=== PATIENT | female | born 1975 | race American Indian/Alaskan Native ===

== ENCOUNTER 2016-10-21 00:34 | Emergency (ER) | payer OTHER ==
--- NOTE | 2016-10-21 02:47 | XRay Report ---
FINAL REPORT PROCEDURE: XR KNEE 3V LT TECHNIQUE: LEFT knee radiographs, AP, lateral and oblique views. CPT 92522 HISTORY: Left knee pain and swollen COMPARISON: No prior studies are available for comparison. FINDINGS: Fracture (s) and/or Dislocation(s): None . Alignment: Normal . Joint space(s): Normal . Soft tissues: Normal . Bone mineralization: Normal . Foreign bodies: None . IMPRESSION: Normal Examination.
[2016-10-21] MEDS ORDERED: FLEXERIL PO ONE (02:54)
[2016-10-21] MEDS ORDERED: TORADOL IM ONE (02:54)
--- NOTE | 2016-10-21 03:09 | Emergency Department Report ---
HPI - General Chief Complaint: Extremity Injury, Lower Time Seen by Provider: 10/21/16 02:29 - HPI HPI: Patient is a 41-year-old female presents to ED complaining of left knee pain times this morning. Patient states she felt her knee pop out of place . Today. Patient states she wasn't doing anything when this incident happened. Patient significant other stated that patient just drove a [address] from [place]. She denies any trauma, fall, or any injury to the knee, calf pain. She denies a fever/ Chills/nausea/vomiting ED Past Medical Hx - Past Medical History Previous Medical History?: Yes Hx Headaches / Migraines: Yes Additional medical history: Polycystic ovarian cyst - Surgical History Additional Surgical History: - Social History Smoking Status: Never Smoker - Medications Home Medications: Home Medications Medication Instructions Recorded Confirmed Last Taken Type Sulfamethoxazole/Trimethoprim 1 each PO BID #6 tablet 01/31/13 Unknown Rx [Bactrim DS] Cyclobenzaprine [Flexeril 10 MG 10 mg PO QHS #20 tablet 10/21/16 Unknown Rx TAB] Naproxen [Naprosyn] 500 mg PO BID #30 tablet 10/21/16 Unknown Rx ED Review of Systems ROS: Stated complaint: LT KNEE PAIN W/SWELLING Other details as noted in HPI Constitutional: denies: chills, fever Eyes: denies: eye pain, eye discharge, vision change ENT: denies: ear pain, throat pain Respiratory: denies: cough, shortness of breath, wheezing Cardiovascular: denies: chest pain, palpitations Endocrine: no symptoms reported Gastrointestinal: denies: abdominal pain, nausea, diarrhea Genitourinary: denies: urgency, dysuria, discharge Musculoskeletal: denies: back pain, joint swelling, arthralgia Skin: denies: rash, lesions Neurological: denies: headache, weakness, paresthesias Psychiatric: denies: anxiety, depression Hematological/Lymphatic: denies: easy bleeding, easy bruising Physical Exam - Physical Exam Vital Signs: Vital Signs 10/21/16 01:15 Temperature 97.7 F Pulse Rate 66 Respiratory 20 Rate Blood Pressure 175/96 O2 Sat by Pulse 98 Oximetry Physical Exam: GENERAL: Alert and oriented x3, no apparent distress, Normal Gait, atraumatic. HEAD: Head is normocephalic and a-traumatic. NECK: Supple. Non edematous, No carotid bruits. No lymphadenopathy or thyromegaly. LUNGS: Symetrical with respiration, No wheezing, no rales or crackles, CTAB. HEART: S1, S2 present, regular rate and rhythm without murmur, no rubs, no gallops. EXTREMITIES/MUSCULOSKELETAL: No cyanosis, clubbing, rash, lesions or edema. Full ROM bilaterally. UE/LE Pulses 2+ bilaterally. LE and UE 5+ strength bilaterally, knee joint is intact. No edema, nonerythematous, no joint effusion of dislocation or fracture noted. Nontender to palpation NEUROLOGIC: The patient is cooperative with no focal neurologic deficits. Cranial nerves II through XII are grossly intact. SKIN: Warm and dry, No lesions, No ulceration or induration present. ED Course Vital Signs 10/21/16 01:15 Temperature 97.7 F Pulse Rate 66 Respiratory 20 Rate Blood Pressure 175/96 O2 Sat by Pulse 98 Oximetry ED Medical Decision Making - Medical Decision Making 41-year-old female presents with left knee arthralgia ED course: Patient received Flexeril and Toradol in the ED Discussed with patient to keep knee wall rested, apply heat 3-4 times daily Discuss a follow-up with primary care physician. Discussed to take medication as prescribed. Medicines are normal patient is in no acute or respiratory distress. Patient is alert and oriented understands instructions given. Knee x-ray completed. X-ray shows no dislocation or fractures, normal alignment , normal joint space, normal soft tissues normal x-ray. Discussed findings with patient Critical care attestation.: If time is entered above; I have spent that time in minutes in the direct care of this critically ill patient, excluding procedure time. ED Disposition Clinical Impression: Arthralgia of knee, left Disposition: DC-01 TO HOME OR SELFCARE Is pt being admited?: No Does the pt Need Aspirin: No Condition: Stable Instructions: Knee Pain (ED), Arthralgia (ED), Knee Exercises (GEN) Prescriptions: Cyclobenzaprine [Flexeril 10 MG TAB] 10 mg PO QHS #20 tablet Naproxen [Naprosyn] 500 mg PO BID #30 tablet Referrals: PRIMARY CARE, [Primary Care Provider] - 3-5 Days [facility] [Outside] - 3-5 Days [facility] [Outside] - 3-5 Days Forms: Work/School Release Form(ED) Time of Disposition: 03:40
[2016-10-21 03:10] VITALS: BP 168/88
== END 2016-10-21 03:55 | disposition home or self-care (01) ==
LOC: ED 00:34
DX: M25.562 Pain in left knee (principal); G43.909 Migraine, unspecified, not intractable, without status migrainosus
CPT/HCPCS: 36415; 73562; 84703; 96372; 99284; J1885

== ENCOUNTER 2016-12-01 03:36 | Emergency (ER) | payer OTHER ==
[2016-12-01 05:10] LABS: Basophils % (Auto) 0.9 % (0.0-1.8); Eosinophils % (Auto) 2.1 % (0.0-4.3); Hematocrit 35.2 % (30.3-42.9); Hemoglobin 11.7 gm/dl (10.1-14.3); Mean Corpuscular HGB Conc 33 % (30-34); Mean Corpuscular Hemoglobin 28 pg (28-32); Mean Corpuscular Volume 84 fl (79-97); Platelet Count 195 K/mm3 (140-440); Red Blood Count 4.21 M/mm3 (3.65-5.03); Red Cell Distribution Width 14.2 % (13.2-15.2); White Blood Count 7.4 K/mm3 (4.5-11.0)
[2016-12-01 05:20] LABS: Partial Thromboplastin Time 27.5 Sec. (24.2-36.6)
[2016-12-01 05:30] LABS: Anion Gap 18 mmol/L; Blood Urea Nitrogen 15 mg/dL (7-17); Calcium 8.8 mg/dL (8.4-10.2); Carbon Dioxide 24 mmol/L (22-30); Chloride 98.9 mmol/L (98-107); Glucose 110 mg/dL (65-100); Potassium 3.6 mmol/L (3.6-5.0); Sodium 137 mmol/L (137-145)
--- NOTE | 2016-12-01 10:40 | Emergency Department Report ---
ED Headache HPI - General Chief Complaint: High BP Stated Complaint: MIGRAINE/SWELLING/TINGLING/LEFT ARM/HAND Time Seen by Provider: 12/01/16 10:05 Source: patient, family Exam Limitations: no limitations - History of Present Illness Initial Comments: PATIENT STATED THAT SHE HAS H/O MIGRAINE HEADACHE, SHE TAKE ECXEDRIN AND USUALLY TAKE CARE OF IT. SHE HAS H/O HIGH BP BUT SHE IS NOT TAKING ANY BP MEDICINE. PATIENT STATED THAT SHE IS DEALING WITH A LOT OF STRESS AT HOME HAVING 3 KIDS. Timing/Duration: waxing and waning Quality: moderate Head Injury Location: frontal Recent Head Trauma: no recent headache/trauma, frequent headaches, chronic headaches Associated Symptoms: denies: denies symptoms, confusion, fatigue, facial pain, fever/chills, flushing, loss of consciousness, nausea/vomiting, nasal congestion , nasal drainage, numbness in legs/feet, rash, seizures, sinus infection, stiff neck, vision changes, weakness, other Allergies/Adverse Reactions: Allergies No Known Allergies Allergy (Unverified 01/31/13 16:13) Home Medications: Ambulatory Orders Sulfamethoxazole/Trimethoprim [Bactrim DS] 1 each PO BID #6 tablet 01/31/13 Cyclobenzaprine [Flexeril 10 MG TAB] 10 mg PO QHS #20 tablet 10/21/16 Naproxen [Naprosyn] 500 mg PO BID #30 tablet 10/21/16 Metoprolol Xl [Metoprolol SUCCINATE ER TAB] 25 mg PO QDAY #30 tablet 12/01/16 ED Review of Systems ROS: Stated complaint: MIGRAINE/SWELLING/TINGLING/LEFT ARM/HAND Other details as noted in HPI Comment: All other systems reviewed and negative Constitutional: denies: chills, fever Eyes: denies: eye pain, vision change Cardiovascular: denies: chest pain, palpitations Gastrointestinal: denies: abdominal pain, nausea, vomiting Neurological: headache. denies: numbness, paresthesias, confusion, abnormal gait ED Past Medical Hx - Past Medical History Previous Medical History?: Yes Hx Hypertension: Yes (no prescribed Rx) Hx Headaches / Migraines: Yes Additional medical history: Polycystic ovarian cyst. Obesity - Surgical History Past Surgical History?: Yes Additional Surgical History: - Social History Smoking Status: Never Smoker Substance Use Type: None - Medications Home Medications: Home Medications Medication Instructions Recorded Confirmed Last Taken Type Sulfamethoxazole/Trimethoprim 1 each PO BID #6 tablet 01/31/13 Unknown Rx [Bactrim DS] Cyclobenzaprine [Flexeril 10 MG 10 mg PO QHS #20 tablet 10/21/16 Unknown Rx TAB] Naproxen [Naprosyn] 500 mg PO BID #30 tablet 10/21/16 Unknown Rx Metoprolol Xl [Metoprolol 25 mg PO QDAY #30 tablet 12/01/16 Unknown Rx SUCCINATE ER TAB] ED Physical Exam - General Limitations: No Limitations General appearance: alert, in no apparent distress - Head Head exam: Present: atraumatic, normocephalic, normal inspection - Eye Eye exam: Present: normal appearance - ENT ENT exam: Present: normal exam - Neck Neck exam: Present: normal inspection. Absent: tenderness, meningismus, lymphadenopathy - Respiratory Respiratory exam: Present: normal lung sounds bilaterally - Cardiovascular Cardiovascular Exam: Present: regular rate, normal heart sounds - GI/Abdominal GI/Abdominal exam: Present: soft. Absent: distended, tenderness - Back Exam Back exam: Present: normal inspection - Neurological Exam Neurological exam: Present: alert, oriented X3, CN II-XII intact, normal gait, reflexes normal. Absent: motor sensory deficit - Psychiatric Psychiatric exam: Present: normal affect. Absent: depressed, homicidal ideation , suicidal ideation - Skin Skin exam: Present: warm, dry ED Course Vital Signs 12/01/16 12/01/16 04:00 09:24 Temperature 98.9 F Pulse Rate 77 79 Respiratory 18 18 Rate Blood Pressure 153/102 149/80 [Right] O2 Sat by Pulse 99 98 Oximetry ED Medical Decision Making - Lab Data Result diagrams: 12/01/16 04:26 12/01/16 04:26 Critical care attestation.: If time is entered above; I have spent that time in minutes in the direct care of this critically ill patient, excluding procedure time. ED Disposition Clinical Impression: Headache, Hypertension Disposition: DC-01 TO HOME OR SELFCARE Is pt being admited?: No Does the pt Need Aspirin: No Condition: Stable Instructions: Hypertension (ED) Prescriptions: Metoprolol Xl [Metoprolol SUCCINATE ER TAB] 25 mg PO QDAY #30 tablet Referrals: KITTY MEDINA MD [Primary Care Provider] - 3-5 Days
[2016-12-01 10:50] VITALS: BP 141/71
== END 2016-12-01 10:49 | disposition home or self-care (01) ==
LOC: ED 03:36
DX: G43.909 Migraine, unspecified, not intractable, without status migrainosus (principal); I10 Essential (primary) hypertension; E66.9 Obesity, unspecified
CPT/HCPCS: 36415; 80048; 84484; 84703; 85025; 85610; 85730; 93005; 93010